=== PATIENT | female | born 1945 ===

== ENCOUNTER → 2019-05-06 | Outpatient (CLI) | payer OTHER | END | disposition home or self-care (01) | LOC: LAB SHORT 11:06 → LAB 11:06 | DX: R19.7 Diarrhea, unspecified (principal) | CPT/HCPCS: 87015; 87045; 87046; 87205; 87899 ==

== ENCOUNTER 2021-11-03 16:44 | Emergency (ER) | payer OTHER ==
[~2021-11-03] VITALS: Ht 154.9 cm; Wt 56.7 kg
== END 2021-11-03 19:36 | disposition home or self-care (01) ==
LOC: ER 16:44
DX: R04.0 Epistaxis (principal)
CPT/HCPCS: A9270

== ENCOUNTER 2021-11-06 08:02 | Emergency (ER) | payer OTHER ==
[~2021-11-06] VITALS: Ht 154.9 cm; Wt 54.9 kg
== END 2021-11-06 09:41 | disposition home or self-care (01) ==
LOC: ER 08:02
DX: Z48.00 Encounter for change or removal of nonsurgical wound dressing (principal)
CPT/HCPCS: 99282; A9270

== ENCOUNTER 2021-11-22 06:17 | Day surgery (SDC) | payer OTHER ==
[~2021-11-22] VITALS: Ht 154.9 cm; Wt 57.2 kg
--- NOTE | 2021-11-22 08:00 | NUR ---
11/22/21 0800 Lizzette Soria PLEDGETS SOAKED IN AFRIN FOR NASAL PACKING PER ORDER
--- NOTE | 2021-11-22 11:28 | NUR ---
11/22/21 1128 Chandler Prajapati PT DISCHARGED WITH 4/10 PAIN. PT SAYS PAIN IS TOLERABLE AND REFUSES MEDICATTION. PT'S BLOOD PRESSURE WAS 182/77 UPON DISCHARGE. THIS WAS SIMILAR TO PRE-OP BLOOD PRESSURE. PT AND HER DAUGHTER WERE ADVISED TO MONITOR HER BLOOD PRESSURE AND FOLLOW UP WITH PCP.
== END 2021-11-22 09:20 | disposition home or self-care (01) ==
LOC: ORSCSDS 06:17
PROVIDERS: Otolaryngology
PROC: 093K8ZZ Control Bleeding in Nasal Mucosa and Soft Tissue, Via Natural or Artificial Opening Endoscopic (ICD-10-PCS; principal; 2021-11-22 07:30)
DX: R04.0 Epistaxis (principal)
CPT/HCPCS: A9270; J0171; J1100; J2405; J2704; J3010; J7120

== ENCOUNTER → 2021-12-06 | Outpatient (CLI) | payer OTHER ==
[2021-12-06 19:37] LABS: BASOPHILS ABSOLUTE AUTO 0.06 K/mm3 (0.00-0.23); BASOPHILS PERCENT AUTO 1 % (0-2); EOSINOPHILS ABSOLUTE AUTO 0.15 K/mm3 (0.00-0.68); EOSINOPHILS PERCENT AUTO 2 % (0-6); Hematocrit 41.4 % (33.0-51.0); Hemoglobin 13.3 g/dL (11.5-16.0); IMMATURE GRAN ABSOLUTE AUTO 0.02 K/mm3 (0.00-0.10); IMMATURE GRAN PERCENT AUTO 0 % (0-1); LYMPHOCYTES ABSOLUTE AUTO 1.93 K/mm3 (0.84-5.20); LYMPHOCYTES PERCENT AUTO 29 % (21-46); MONOCYTES ABSOLUTE AUTO 0.42 K/mm3 (0.16-1.47); MONOCYTES PERCENT AUTO 6 % (4-13); Mean Corpuscular HGB 30.2 pg (26.0-34.0); Mean Corpuscular HGB Conc 32.1 g/dL (31.5-36.5); Mean Corpuscular Volume 94 fL (80-100); NEUTROPHILS ABSOLUTE AUTO 4.05 K/mm3 (1.96-9.15); NEUTROPHILS PERCENT AUTO 61 % (41-73); Platelet Count 260 K/mm3 (150-400); RDW Coefficient Variation 13.3 % (11.7-14.2); Red Blood Cell Count 4.41 M/mm3 (3.80-5.20); White Blood Cell Count 6.63 K/mm3 (4.00-11.30)
[2021-12-06 19:43] LABS: Albumin, Blood 4.1 g/dL (3.4-5.0); Albumin/Globulin Ratio 1.3 (0.8-1.8); Bilirubin, Total 0.4 mg/dL (0.1-1.0); Bun/Creatinine Ratio 23.3 (12.0-20.0); Calcium, Blood 9.7 mg/dL (8.5-10.1); Creatinine, Blood 0.69 mg/dL (0.40-1.00); Globulin, Blood 3.1 g/dL (2.2-4.0); Potassium, Blood 4.3 mmol/L (3.5-5.5); Total Protein, Blood 7.2 g/dL (6.4-8.2)
== END ==
LOC: LAB 12:46 → LAB SHORT 12:46
PROVIDERS: Family Medicine
DX: I10 Essential (primary) hypertension (principal); R04.0 Epistaxis
CPT/HCPCS: 80053; 85025